=== PATIENT | female | born 1970 | race Caucasian/White ===

== ENCOUNTER 2016-11-10 10:53 | Emergency (ER) | payer MEDICAID, OTHER ==
[~2016-11-10] VITALS: Wt 71.6 kg
[~2016-11-10 10:53] MED LIST: CIPR500T4 PO
[2016-11-10] MEDS ORDERED: HYDROCODONE/APAP (5/325) TAB PO ONE (13:00)
[2016-11-10 13:14] LABS: ADD SCAN DIFF NO
[2016-11-10 13:19] LABS: BASOPHILS % 0.5 % (0.0-2.0); EOSINOPHILS % 0.7 % (0.0-7.0); HEMATOCRIT 40.3 % (37.0-47.0); HEMOGLOBIN 13.7 g/dl (12.0-16.0); LYMPHOCYTES # 2.1 10^3/ul (0.8-2.9); LYMPHOCYTES % 36.1 % (15.0-51.0); MEAN CORPUSCULAR HEMOGLOBIN 30.8 pg (29.0-33.0); MEAN CORPUSCULAR VOLUME 90.6 fl (82.0-101.0); MEAN PLATELET VOLUME 9.3 fl (7.4-10.4); MONOCYTE # 0.4 10^3/ul (0.3-0.9); MONOCYTES % 7.3 % (0.0-11.0); NEUTROPHIL # 3.2 10^3/ul (1.6-7.5); NEUTROPHILS % 55.2 % (39.0-77.0); PLATELET COUNT 371 10^3/UL (140-415); RED BLOOD COUNT 4.45 10^6/ul (4.20-5.40); RED CELL DISTRIBUTION WIDTH 12.3 % (11.5-14.5); WHITE BLOOD COUNT 5.7 10^3/ul (4.8-10.8)
[2016-11-10 13:30] LABS: ALBUMIN 4.5 g/dl (3.3-4.9); POTASSIUM 4.1 mmol/L (3.5-5.1)
[2016-11-10 13:32] LABS: CREATININE 0.62 mg/dl (0.44-1.00)
[2016-11-10 13:33] LABS: ALBUMIN/GLOBULIN RATIO 1.32; BILIRUBIN,INDIRECT 1.2 mg/dl (0-1.1); BILIRUBIN,TOTAL 1.2 mg/dl (0.2-1.3); TOTAL PROTEIN 7.9 g/dl (6.1-8.1)
[2016-11-10 13:34] LABS: CALCIUM 9.7 mg/dl (8.4-10.2)
[2016-11-10 13:35] LABS: ADD UMIC YES; URINE BILIRUBIN (Dip) NEGATIVE (NEGATIVE); URINE BLOOD (Dip) 1+ (NEGATIVE); URINE COLOR LT. YELLOW (YELLOW); URINE GLUCOSE (Dip) NEGATIVE (NEGATIVE); URINE KETONES (Dip) NEGATIVE (NEGATIVE); URINE LEUKOCYTE ESTERASE (Dip) 1+ (NEGATIVE); URINE NITRITE (Dip) NEGATIVE (NEGATIVE); URINE TOTAL PROTEIN (Dip) NEGATIVE (NEGATIVE); URINE UROBILINOGEN (Dip) 0.2 E.U./dL (0.1-1.0)
[2016-11-10 13:51] LABS: BACTERIA,URINE FEW; SQUAMOUS EPITHELIAL CELL,UR FEW; TRICHOMONAS,URINE FEW
--- NOTE | 2016-11-10 14:09 | RADRPT ---
PROCEDURE: US Pelvis. CLINICAL INDICATION: Pelvic pain TECHNIQUE: Multiple sonographic images of the pelvis were obtained utilizing a transabdominal and endovaginal technique. The images were reviewed on a PACS workstation. COMPARISON: None. FINDINGS: The uterus is visualized and measures 8.6 x 4.6 x 5.3 cm. The endometrial echo complex measures 10 m m thickness. Mild heterogeneity of the uterus is identified. No uterine masses are observed. The right ovary measures 2.8 x 1.8 x 2.0 cm . The left ovary measures 2.4 x 1.4 x 1.3 cm. A few fo llicles are seen on the right ovary. The ovaries demonstrate normal vascularity.. No adnexal masses or pelvic free fluid are noted. IMPRESSION: Mild, nonspecific heterogeneity of the uterus. Finding could reflect normal variant for this patien t versus small, indistinct fibroids or adenomyosis. Otherwise, unremarkable exam. If further characterization of the organs of the pelvis is needed MRI should be considered. RPTAT: AA .Erik Carey MD, Date Time Electronically viewed and signed by .Erik Carey MD, on 11/10/2016 14:08 .P/
[2016-11-10] MEDS ORDERED: IBUP-1542 PO (14:27)
[2016-11-10] MEDS ORDERED: CIPR500T4 PO (14:27)
[2016-11-10] MEDS ORDERED: LIDOCAINE 1% (MDV) 20 ML INJ SC ONE (14:30)
[2016-11-10] MEDS ORDERED: LIDOCAINE 2% (MDV) 20 ML INJ INJ ONE (14:30)
[2016-11-10] MEDS ORDERED: CEFTRIAXONE 1 GM INJ IM ONE (14:30)
[2016-11-10 14:41] VITALS: BP 124/90; PULSE 71; RESP 16; TEMP 98
--- NOTE | 2016-11-10 15:30 | ERD ---
ER Documentation Chief Complaint Date/Time DATE: 11/10/16 TIME: 15:23 Chief Complaint lower back pain radiating to front with some dysuria no hematuria noted HPI This is a 46-year-old female presents to the ER with right-sided flank pain started yesterday. Per patient she does have some dysuria. She denies any hematuria. Patient admits to headache and fever 2 days ago. She is also complaining of pelvic pain. She denies any nausea vomiting or diarrhea. She denies any vaginal discharge she is not currently sexually active. She denies any falls or trauma. She rates pain as 9 out of 10, pain is sharp whenever she moves. ROS 12 point review of systems was done all negative except per HPI. Medications Home Meds Active Scripts Ibuprofen* (Motrin*) 600 Mg Tab, 600 MG PO Q6, #30 TAB Prov:ELI KIM 11/10/16 Ciprofloxacin Hcl* (Ciprofloxacin Hcl*) 500 Mg Tablet, 500 MG PO BID for 7 Days , TAB Prov:ELI KIM C 11/10/16 Ciprofloxacin Hcl* (Ciprofloxacin Hcl*) 500 Mg Tablet, 500 MG PO BID for 7 Days , TAB Prov:SHARON KLEIN PA-C 08/30/15 Reported Medications [None] No Conflict Check 12/20/11 Allergies Allergies: Coded Allergies: No Known Allergy (Verified , 11/10/16) PMhx/Soc History of Surgery: No Anesthesia Reaction: No Hx Neurological Disorder: No Hx Respiratory Disorders: No Hx Cardiac Disorders: No Hx Psychiatric Problems: No Hx Miscellaneous Medical Probl: Yes (kindey infections) Hx Alcohol Use: No Hx Substance Use: No Hx Tobacco Use: No Smoking Status: Never smoker Physical Exam Vitals Vital Signs Date Time Temp Pulse Resp B/P Pulse Ox O2 Delivery O2 Flow Rate FiO2 11/10/16 14:41 98.0 71 16 124/90 100 Room Air 11/10/16 10:56 98.1 82 20 128/82 98 Physical Exam GENERAL: The patient is well developed and appropriate for usual state of health , in no apparent distress. HEENT: Atraumatic CHEST: Clear to auscultation bilaterally. There are no rales, wheezes or rhonchi. HEART: Regular rate and rhythm. No murmurs, clicks, rubs or gallops. ABDOMEN: Soft, nontender and nondistended. Good bowel sounds. No rebound or guarding. No gross peritonitis. No gross organomegaly or masses. No Hewitt sign or McBurney point tenderness. + pelvic pain BACK: + cva tenderness on the right. NEURO: Alert and oriented. Result Diagram: 11/10/16 1310 11/10/16 1310 Results 24 hrs Laboratory Tests Test 11/10/16 13:10 11/10/16 13:30 Alanine Aminotransferase (ALT/SGPT) 32IU/L Albumin 4.5g/dl Albumin/Globulin Ratio 1.32 Alkaline Phosphatase 87IU/L Anion Gap 18 Aspartate Amino Transf (AST/SGOT) 24IU/L Basophils # 0.010^3/ul Basophils % 0.5% Blood Urea Nitrogen 13mg/dl Calcium Level 9.7mg/dl Carbon Dioxide Level 31mmol/L Chloride Level 101mmol/L Creatinine 0.62mg/dl Direct Bilirubin 0.00mg/dl Eosinophils # 0.010^3/ul Eosinophils % 0.7% Globulin 3.40g/dl Glucose Level 109mg/dl Hematocrit 40.3% Hemoglobin 13.7g/dl Indirect Bilirubin 1.2mg/dl Lymphocytes # 2.110^3/ul Lymphocytes % 36.1% Mean Corpuscular Hemoglobin 30.8pg Mean Corpuscular Hemoglobin Concent 34.0g/dl Mean Corpuscular Volume 90.6fl Mean Platelet Volume 9.3fl Monocytes # 0.410^3/ul Monocytes % 7.3% Neutrophils # 3.210^3/ul Neutrophils % 55.2% Nucleated Red Blood Cells # 0.010^3/ul Nucleated Red Blood Cells % 0.0/100WBC Platelet Count 48522^3/UL Potassium Level 4.1mmol/L Red Blood Count 4.4510^6/ul Red Cell Distribution Width 12.3% Sodium Level 146mmol/L Total Bilirubin 1.2mg/dl Total Protein 7.9g/dl White Blood Count 5.710^3/ul Urine Bacteria FEW Urine Bilirubin NEGATIVE Urine Clarity CLEAR Urine Color LT. YELLOW Urine Glucose NEGATIVE% Urine Hemoglobin 1+ Urine Ketones NEGATIVE Urine Leukocyte Esterase 1+ Urine Microscopic RBC 2-5/HPF Urine Microscopic WBC 2-5/HPF Urine Nitrite NEGATIVE Urine Specific [place] 1.020 Urine Squamous Epithelial Cells FEW Urine Total Protein NEGATIVE Urine Trichomonas FEW Urine Urobilinogen 0.2 E.U./dL Urine pH 6.0 Current Medications Medications (Trade) Dose Ordered Sig/Chris Route PRN Reason Start Time Stop Time Status Last Admin Dose Admin Acetaminophen/ Hydrocodone Bitart (Haynes (5/325)) 1 tab ONCE ONCE PO 11/10/16 13:00 11/10/16 13:01 DC 11/10/16 13:10 Ceftriaxone Sodium (Rocephin) 1 gm ONCE ONCE IM 11/10/16 14:30 11/10/16 14:31 DC 11/10/16 14:23 Lidocaine (Xylocaine 2% (Mdv) 20 ml) 20 ml ONCE ONCE INJ 11/10/16 14:30 11/10/16 14:30 DC Lidocaine (Xylocaine 1% (Mdv) 20 ml) 20 ml ONCE ONCE SC 11/10/16 14:30 11/10/16 14:31 DC 11/10/16 14:23 Procedures/MDM Differential diagnosis includes but is not limited to appendicitis, UTI, pyelonephritis, kidney stone, constipation, ectopic , ovarian torsion , PID, Mittelschmerz, fibroid. This is a 46 y/o female that presents to the ER with flank pain. Patient did have leukocytes in her urine and has CVA tenderness on physical exam, she will be treated for pyelonephritis. Suspicion for systemic infection is low. Patient is afebrile and well appearing. Patient did have possible fibroids on ultz which could cause her pelvic pain . There was no evidence of torsion. I doubt PID as she denies any vaginal discharge or sexual activity. suspicion for acute abdomen is low. Patients abdominal exam in benign. Patient was given Rocephen here in the ER without any complications. She will be sent home with [facility]. The patient is a follow-up with her primary care doctor within 1-2 days or return to ER sooner if symptoms worsen. By medical decision making sure with the patient she understands and agrees with plan. Departure Diagnosis: Primary Impression: Pyelonephritis Condition: Stable Patient Instructions: Pyelonephritis, Female (Adult) Additional Instructions: Call your primary care doctor TOMORROW for an appointment during the next 1-2 days.See the doctor sooner or return here if your condition worsens before your appointment time. ELI KIM Nov 10, 2016 15:29
== END 2016-11-10 14:44 | disposition home or self-care (01) ==
LOC: FTE 10:53
DX: N12 Tubulo-interstitial nephritis, not specified as acute or chronic (principal)
CPT/HCPCS: 76830; 76856; 80053; 81001; 85025; 96372; J0696; Z7502; Z7610; 81003

== ENCOUNTER 2018-09-29 10:20 | Emergency (ER) | payer SELFPAY ==
[~2018-09-29] VITALS: Wt 77.0 kg
[~2018-09-29 10:20] MED LIST changes: +IBUP-1542 PO
[2018-09-29 10:23] VITALS: BP 143/71; PULSE 90; RESP 18
[2018-09-29] MEDS ORDERED: KETOROLAC 30 MG INJ IM STA (12:16)
--- NOTE | 2018-09-29 12:43 | ERD ---
ER Documentation Chief Complaint Chief Complaint BACK PAIN SINCE YESTERDAY HPI 48-year-old female, previously healthy, presents the emergency department, complaining of acute onset of sharp back pain. Constant, worsened by lateral rotation. No medications taken for the pain today. She denies fevers, no chills, no urinary symptoms. No history of trauma. ROS All systems reviewed and are negative except as per history of present illness. Medications Home Meds Active Scripts Acetaminophen* (Tylenol*) 325 Mg Tablet, 2 TAB PO Q8 PRN for PAIN AND OR ELEVATED TEMP, #20 TAB Prov:NILSA MOSER MD 09/29/18 Ibuprofen* (Motrin*) 400 Mg Tab, 400 MG PO Q8, #21 TAB Prov:NILSA MOSER MD 09/29/18 Baclofen* (Baclofen*) 10 Mg Tablet, 10 MG PO QHS for 7 Days, TAB Prov:NILSA MOSER MD 09/29/18 Ibuprofen* (Motrin*) 600 Mg Tab, 600 MG PO Q6, #30 TAB Prov:ELI KIM 11/10/16 Ciprofloxacin Hcl* (Ciprofloxacin Hcl*) 500 Mg Tablet, 500 MG PO BID for 7 Days, TAB Prov:ELI KIM 11/10/16 Ciprofloxacin Hcl* (Ciprofloxacin Hcl*) 500 Mg Tablet, 500 MG PO BID for 7 Days, TAB Prov:SHARON KLEIN PA-C 08/30/15 Reported Medications [None] No Conflict Check 12/20/11 Allergies Allergies: Coded Allergies: No Known Allergy (Verified , 11/10/16) PMhx/Soc Medical and Surgical Hx: pt denies Medical Hx, pt denies Surgical Hx History of Surgery: No Anesthesia Reaction: No Hx Neurological Disorder: No Hx Respiratory Disorders: No Hx Cardiac Disorders: No Hx Psychiatric Problems: No Hx Miscellaneous Medical Probl: Yes (kindey infections) Hx Alcohol Use: No Hx Substance Use: No Hx Tobacco Use: No Smoking Status: Never smoker Physical Exam Vitals Vital Signs Date Temp Pulse Resp B/P (MAP) Pulse Ox O2 O2 Flow FiO2 Time Delivery Rate 09/29/18 98.2 90 18 143/71 99 10:23 (95) Physical Exam Const: No acute distress Head: Atraumatic Eyes: Normal Conjunctiva ENT: Normal External Ears, Nose and Mouth. Neck: Full range of motion. No meningismus. Resp: Clear to auscultation bilaterally Cardio: Regular rate and rhythm, no murmurs Abd: Soft, non tender, non distended. Normal bowel sounds Skin: No petechiae or rashes Back: No midline or flank tenderness, lower back muscle spasm. Decreased range of motion for lateral rotation due to pain. Ext: No cyanosis, or edema Neur: Awake and alert Psych: Normal Mood and Affect Results 24 hrs Laboratory Tests Test 09/29/18 12:34 POC Beta HCG, Qualitative NEGATIVE Current Medications Medications Dose Sig/Chris Start Time Status Last (Trade) Ordered Route PRN Stop Time Admin Dose Reason Admin Ketorolac 30 mg ONCE STAT 09/29/18 DC 09/29/18 Tromethamine IM 12:16 12:36 (Toradol) 09/29/18 12:17 Procedures/MDM Differential diagnosis include but not limited to: lumbar sprain/strain, sciatica, herniated disk, UTI less likely pyelo, kidney stone. Neurovascular exam grossly intact. no clinical findings suggestive of acute infectious process, no acute deformity, no edema, no rashes. Physical examination and clinical presentation consistent most likely with acute on chronic back pain with sciatica. During the ED course the patient received treatment with Toradol IM presenting overall improvement of the symptoms. Results and clinical impression discussed with the patient who agrees with management. The patient is stable to be treated outpatient and will be discharged home with recommendations and close monitoring The patient was instructed to follow up with the primary care provider in the next 48h. If symptoms persist, worsen or new symptoms develop, then patient should return to the ED immediately. Instructions explained and given to patient with acknowledgment and demonstrated understanding. Disclaimer: Inadvertent spelling and grammatical errors are likely due to EHR/dictation software use and do not reflect on the overall quality of patient care. Also, please note that the electronic time recorded on this note does not necessarily reflect the actual time of the patient encounter. Departure Diagnosis: Primary Impression: Acute back pain Condition: Stable Additional Instructions: Muchas floresita por [facility] para tucker servicio. Esperamos que en tucker visita a la fernando de emergencia tucker problema medico haya sido solucionado y que se sienta mucho mejor. Para estar seguros que tucker mejoria sigue en proceso, le pedimos el favor de hacer christian zehra de seguimiento medico con tucker doctor primario en los proximos 2-4 rice. Lleve con usted estos documentos y las medicinas recetadas. Si vitor sintomas empeoran, NO SE ESPERE, por favor regrese a fernando de emergencia INMEDIATAMENTE. En frederic que usted no tenga un mdico de atencin primaria: Llame al mdico o clnica comunitaria de referencia que aparece abajo parish las horas de consultorio para hacer christian zehra para que le vean. CLINICAS: [facility] [phone] [facility] [phone] [facility] [phone] [facility] [phone] [facility] [phone] [address] [facility]. [phone] NILSA REYNOSO MD Sep 29, 2018 12:43
[2018-09-29] MEDS ORDERED: IBUP-1561 PO (13:45)
[2018-09-29] MEDS ORDERED: BACL10TA PO (13:45)
[2018-09-29] MEDS ORDERED: ACET325T33 PO (13:45)
== END 2018-09-29 13:58 | disposition home or self-care (01) ==
LOC: FTE 10:20
DX: M54.9 Dorsalgia, unspecified (principal)
CPT/HCPCS: 81003; 81025; 96372; 99284; J1885